=== PATIENT | female | born 1980 | race African-American/Black ===

== ENCOUNTER 2019-01-14 06:58 | Emergency (ER) | payer BC ==
[~2019-01-14] VITALS: Ht 157.5 cm; Wt 61.4 kg
[2019-01-14 07:07] VITALS: Ht 157.5 cm; Wt 61.4 kg
[2019-01-14] MEDS ORDERED: NAPROSYN500 MG PO (09:03)
[2019-01-14 09:13] VITALS: BP 151/101
== END 2019-01-14 09:11 | disposition home or self-care (01) ==
LOC: D.ER 06:58
DX: S61.309A Unspecified open wound of unspecified finger with damage to nail, initial encounter (principal); W23.0XXA Caught, crushed, jammed, or pinched between moving objects, initial encounter; Y93.89 Activity, other specified; Y92.89 Other specified places as the place of occurrence of the external cause